=== PATIENT | female | born 1990 | race Caucasian/White ===

== ENCOUNTER 2020-09-03 22:26 | Emergency (ER) | payer MEDICAID ==
[~2020-09-03] VITALS: Ht 149.9 cm; Wt 104.8 kg
[2020-09-03] MEDS: cephALEXin 500 MG CAP PO ONE (00:21)
[2020-09-03] MEDS: SULFAMETH/TRIMETH DS 800/160MG 1 TAB PO ONE (00:21)
[2020-09-03] MEDS: KETOROLAC 60 MG/2 ML VIAL IM ONE (00:22)
[2020-09-03 22:29] VITALS: BP 120/70
[2020-09-04 00:22] VITALS: BP 120/70
== END 2020-09-04 00:22 | disposition home or self-care (01) ==
LOC: MED 22:26
DX: L03.314 Cellulitis of groin (principal)
CPT/HCPCS: 96372; 99283; J1885